=== PATIENT | female | born 1990 | race Caucasian/White ===

== ENCOUNTER → 2016-12-15 | Outpatient (CLI) | payer BC ==
--- NOTE | 2016-12-15 16:52 | REP ---
Obstetric sonography: History: Supervision of , size date discrepancy, size less than dates. Comparison study: 08/03/2016. Findings: Scanning through the gravid uterus demonstrates a viable single intrauterine gestation in a cephalic lie. motion is observed and heart rate is recorded at 150 beats per minute. Anterior right lateral placenta is seen grade 2 without evidence of previa or abruption. Amniotic fluid is subjectively normal. Closed cervical length is 1.8 cm, viewed transabdominally. There has been appropriate interval growth. Left-sided stomach, kidneys and bladder are seen today are unremarkable. Biometry chart: BPD 9.0 cm = 36 weeks 3 days Head circumference 33.4 cm = 38 weeks 1 day Abdominal circumference 31.6 cm = 35 weeks 4 days Femur length 7.4 cm = 37 weeks 5 days HC/AC ratio normal 1.06, cephalic index normal 0.75, estimated weight 2944 grams, 6 pounds 7 ounces 32nd percentile for 38 weeks 1 day. LEE normal 13.4 cm. SD ratio in the umbilical cord artery by Doppler normal at 2.29. Impression: Viable single intrauterine gestation at 36 weeks 6 days by today's composite criteria. Expected gestational age estimate based on prior sonography is 38 weeks 1 day. CHRIS by prior sonography 12/28/2016. There is appropriate interval growth.
== END ==
LOC: M WHC 13:27
PROVIDERS: ATTEND Nurse Practitioner Women's Health
DX: O26.849 Uterine size-date discrepancy, unspecified trimester (principal); Z3A.36 36 weeks gestation of pregnancy

== ENCOUNTER → 2016-12-29 | Outpatient (CLI) | payer BC ==
--- NOTE | 2016-12-29 14:15 | REP ---
Clinical: Decreased amniotic fluid volume . Comparison: 12/15/2016 . Findings: Examination demonstrates a single live advanced gestation in cephalic presentation. motion is identified by technologist. Placenta is noted anteriorly and grade 1 without evidence for placenta previa or abruption. Amniotic fluid volume is normal. Cervix measures 2.8 cm in length and appears closed. No evidence for nuchal cord. Gestational age by LMP 40 weeks 1 day with CHRIS 12/28/2016 . FHR equals 144 beats per minute. LEE equals 11.2 cm. Umbilical cord SD ratio equals 1.77. Impression: Single live advanced gestation in cephalic presentation. Amniotic fluid volume is within normal limits for age. Signed by Harshil Wyman MD 12/29/2016 02:06 P
== END ==
LOC: M RAD 13:43
PROVIDERS: ATTEND Nurse Practitioner Women's Health
DX: O41.03X1 Oligohydramnios, third trimester, fetus 1 (principal); Z3A.40 40 weeks gestation of pregnancy

== ENCOUNTER 2017-12-09 16:08 | Emergency (ER) | payer BC ==
[2017-12-09 17:59] LABS: BASO # 0.1 10^3/uL (0.0-0.2); BASO % 0.5 % (0.0-1.0); EOS % 0.4 % (0.0-3.0); HEMATOCRIT 32.9 % (36.0-47.0); HEMOGLOBIN 11.4 g/dl (12.0-16.0); IMMATURE GRANULOCYTE % 0.6 % (0-3.0); LYMPH # 1.3 10^3/uL (1.5-6.5); MEAN CORPUSCULAR HEMOGLOBIN 31.6 pg (27.0-33.0); MEAN CORPUSCULAR HGB CONC 34.7 g/dl (32.0-36.5); MEAN CORPUSCULAR VOLUME 91.1 fl (80.0-96.0); MONO # 0.7 10^3/uL (0.0-0.8); MONO % 6.1 % (0.0-5.0); NEUTROPHILS # 8.8 10^3/uL (1.8-7.7); NEUTROPHILS % 80.4 % (36.0-66.0); PLATELET COUNT, AUTOMATED 261 10^3/uL (150-450); RED BLOOD COUNT 3.61 10^6/uL (4.00-5.40); RED CELL DISTRIBUTION WIDTH 12.6 % (11.5-14.5); WHITE BLOOD COUNT 10.9 10^3/uL (4.0-10.0)
[2017-12-09] MEDS: NS 1,000 ML IV (18:10)
[2017-12-09 18:23] LABS: ACETAMINOPHEN LEVEL < 2.0 UG/ML (10.0-30.0); ALBUMIN 4.2 GM/DL (3.2-5.2); ALBUMIN/GLOBULIN RATIO 1.91 (1.00-1.93); ALKALINE PHOSPHATASE 100 U/L (45-117); ALT/SGPT 17 U/L (12-78); AMPHETAMINES LEVEL URINE NEGATIVE (NEGATIVE); ANION GAP 8 MEQ/L (8-16); AST/SGOT 9 U/L (7-37); BARBITURATES URINE NEGATIVE (NEGATIVE); BENZODIAZEPINES URINE NEGATIVE (NEGATIVE); BILIRUBIN,DIRECT < 0.1 MG/DL (0.0-0.2); BILIRUBIN,TOTAL 0.3 MG/DL (0.2-1.0); BLOOD UREA NITROGEN 7 MG/DL (7-18); CALCIUM LEVEL 8.1 MG/DL (8.5-10.1); CANNABINOIDS URINE POSITIVE (NEGATIVE); CARBON DIOXIDE LEVEL 24 MEQ/L (21-32); CHLORIDE LEVEL 110 MEQ/L (98-107); COCAINE METABOLITE URINE NEGATIVE (NEGATIVE); CREATININE FOR GFR 0.63 MG/DL (0.55-1.30); ETHYL ALCOHOL (ETHANOL) < 0.003 % (0.000-0.010); GLOMERULAR FILTRATION RATE > 60.0 (>60); GLUCOSE, FASTING 120 MG/DL (70-100); METHADONE URINE NEGATIVE (NEGATIVE); OPIATES URINE NEGATIVE (NEGATIVE); PHENCYCLIDINE URINE NEGATIVE (NEGATIVE); POTASSIUM SERUM 3.8 MEQ/L (3.5-5.1); SALICYLATE LEVEL < 1.7 MG/DL (5.0-30.0); SODIUM LEVEL 142 MEQ/L (136-145); TOTAL PROTEIN 6.4 GM/DL (6.4-8.2)
[2017-12-09 18:30] LABS: CONTROL LINE HCG INT CTR LINE PRESENT; HCG, SERUM QUALITATIVE NEGATIVE (NEGATIVE)
== END 2017-12-09 19:52 | disposition home or self-care (01) ==
LOC: M ED 16:08
DX: R56.9 Unspecified convulsions (principal); Z97.5 Presence of (intrauterine) contraceptive device
CPT/HCPCS: 70450

== ENCOUNTER 2018-01-05 15:38 | Emergency (ER) | payer BC ==
[2018-01-05] MEDS: levETIRAcetam INJection 1,000 MG in D5W 100 ML IV (17:02)
[2018-01-05] MEDS: ACETAMINOPHEN 325 MG TAB PO (17:02)
== END 2018-01-05 18:29 | disposition home or self-care (01) ==
LOC: M ED 15:38
DX: G40.909 Epilepsy, unspecified, not intractable, without status epilepticus (principal); Z97.5 Presence of (intrauterine) contraceptive device
CPT/HCPCS: J1953

== ENCOUNTER → 2020-08-06 | Outpatient (REF) | payer OTHER ==
[~2020-08-06] MED LIST: KEPP1TAB2 PO; PARA1IUD IU
== END ==
LOC: M WUC 15:56
PROVIDERS: ATTEND Nurse Practitioner Family
DX: R30.0 Dysuria (principal)

== ENCOUNTER → 2020-09-13 | Outpatient (REF) | payer OTHER | LOC: M SFHCWAGY 16:45 | PROVIDERS: ATTEND Advanced Practice Midwife | DX: N39.0 Urinary tract infection, site not specified (principal) ==

== ENCOUNTER → 2022-07-16 | Outpatient (REF) | payer OTHER | LOC: M SFHCWAGY 17:30 | PROVIDERS: ATTEND Nurse Practitioner Family | DX: Z12.4 Encounter for screening for malignant neoplasm of cervix (principal); R87.610 Atypical squamous cells of undetermined significance on cytologic smear of cervix (ASC-US) ==

== ENCOUNTER → 2022-07-24 | Outpatient (CLI) | payer OTHER | LOC: M WHC 11:51 | PROVIDERS: ATTEND Nurse Practitioner Family | DX: T83.32XS Displacement of intrauterine contraceptive device, sequela (principal); N85.4 Malposition of uterus; N85.2 Hypertrophy of uterus ==

== ENCOUNTER → 2022-08-27 | Outpatient (CLI) | payer OTHER ==
[~2022-08-27] MED LIST changes: +OXCA150T21 PO; +OXCA600T8 PO
== END ==
LOC: M LABSMTC 09:13
PROVIDERS: ATTEND Anesthesiology
DX: Z01.812 Encounter for preprocedural laboratory examination (principal); Z11.52 Encounter for screening for COVID-19

== ENCOUNTER 2022-08-31 10:04 | Day surgery (SDC) | payer OTHER ==
[~2022-08-31] VITALS: Ht 170.2 cm; Wt 65.2 kg
[2022-08-31] MEDS ORDERED: LR 1,000 ML IV SCH ×2 (10:45→12:40)
[2022-08-31] MEDS ORDERED: LIDOCAINE 2% 100MG/5ML SDV (FOR ANES.) As Ordered ONE (10:48)
[2022-08-31] MEDS ORDERED: propofoL 200 MG/20 ML VIAL As Ordered ONE (10:48)
[2022-08-31] MEDS ORDERED: ONDANSETRON 4MG 2ML VIAL As Ordered ONE (10:48)
[2022-08-31] MEDS ORDERED: dexameTHASONE 4 MG/ML 1ML VIAL (J1100 PER 1MG) As Ordered ONE (10:48)
[2022-08-31] MEDS ORDERED: KETOROLAC 60MG 2ML VIAL As Ordered ONE (10:48)
[2022-08-31] MEDS ORDERED: fentaNYL 100 MCG/2 ML INJECTION As Ordered ONE (10:49)
[2022-08-31] MEDS ORDERED: MIDAZOLAM INJ 2MG/2ML VIAL (J2250 PER 1MG) As Ordered ONE (10:49)
[2022-08-31] MEDS ORDERED: ONDANSETRON 4MG 2ML VIAL IV PRN (12:40)
[2022-08-31] MEDS ORDERED: fentaNYL 100 MCG/2 ML INJECTION IV PRN (12:40)
[2022-08-31] MEDS ORDERED: oxyCODONE 5MG TAB PO PRN (12:40)
[2022-08-31] MEDS ORDERED: HYDROMORPHONE HCL 0.5 MG/ 0.5 ML SYRINGE (J1170 PER 1) IV PRN (12:40)
[2022-08-31 14:03] VITALS: BP 123/77
[2022-08-31] MEDS ORDERED: KETOROLAC 30 MG/ML 1ML VIAL IV SCH (18:00)
== END 2022-08-31 14:39 | disposition home or self-care (01) ==
LOC: M SDC 10:04
PROVIDERS: ATTEND Obstetrics & Gynecology
DX: N84.0 Polyp of corpus uteri (principal); T83.39XA Other mechanical complication of intrauterine contraceptive device, initial encounter
CPT/HCPCS: 58558; 81025; 88305; J1100; J1885; J2250; J2405; J3010

== ENCOUNTER → 2024-01-21 | Outpatient (REF) | payer OTHER ==
[2024-01-21 15:37] LABS: APPEARANCE, URINE CLEAR (CLEAR); BACTERIA, URINE AUTO NEGATIVE (NEGATIVE); BILIRUBIN, URINE AUTO NEGATIVE (NEGATIVE); BLOOD, URINE BLOOD NEGATIVE (NEGATIVE); COLOR, URINE YELLOW (YELLOW); GLUCOSE, URINE (UA) AUTO NEGATIVE (NEGATIVE); KETONE, URINE AUTO NEGATIVE (NEGATIVE); LEUKOCYTE ESTERASE, URINE AUTO NEGATIVE (NEGATIVE); NITRITE, URINE AUTO NEGATIVE (NEGATIVE); PROTEIN, URINE AUTO NEGATIVE (NEGATIVE); RBC, URINE AUTO 0 /HPF (0-3); SPECIFIC GRAVITY URINE AUTO 1.015 (1.002-1.035); SQUAMOUS EPITHELIAL CELL UR AU 0 /HPF (0-6); UROBILINOGEN, URINE AUTO 0.2 mg/dL (0.0-2.0); WBC, URINE AUTO 0 /HPF (0-3)
== END ==
LOC: M SFHCWAGY 15:01
PROVIDERS: ATTEND Nurse Practitioner Family
DX: R39.15 Urgency of urination (principal); N39.0 Urinary tract infection, site not specified

== ENCOUNTER → 2024-02-10 | Outpatient (REF) | payer OTHER | LOC: M LAB REF 16:27 | PROVIDERS: ATTEND Physician Assistant Medical | DX: Z32.01 Encounter for pregnancy test, result positive (principal) ==

== ENCOUNTER → 2024-03-08 | Outpatient (CLI) | payer OTHER ==
[2024-03-08 14:10] LABS: HEMATOCRIT 43.3 % (36.0-47.0); HEMOGLOBIN 14.9 g/dl (12.0-15.5); MEAN CORPUSCULAR HEMOGLOBIN 31.6 pg (27.0-33.0); MEAN CORPUSCULAR HGB CONC 34.4 g/dl (32.0-36.5); MEAN CORPUSCULAR VOLUME 91.9 fl (80.0-96.0); PLATELET COUNT, AUTOMATED 251 10^3/uL (150-450); RED BLOOD COUNT 4.71 10^6/uL (4.00-5.40); WHITE BLOOD COUNT 7.8 10^3/uL (4.0-10.0)
[2024-03-08 15:13] LABS: HIV 1&2 SCREEN NEGATIVE (NEGATIVE)
[2024-03-08 15:21] LABS: HEPATITIS C VIRUS ABY INDEX < 0.02 INDEX (<0.8)
[2024-03-08 15:28] LABS: GC DNA AMPLIFICATION NEGATIVE (NEGATIVE)
== END ==
LOC: M PLALAB 11:24
PROVIDERS: ATTEND Advanced Practice Midwife
DX: O99.351 Diseases of the nervous system complicating pregnancy, first trimester (principal); G40.909 Epilepsy, unspecified, not intractable, without status epilepticus

== ENCOUNTER → 2024-03-10 | Outpatient (REF) | payer OTHER | LOC: M LAB REF 13:02 | PROVIDERS: ATTEND Physician Assistant Medical | DX: G40.009 Localization-related (focal) (partial) idiopathic epilepsy and epileptic syndromes with seizures of localized onset, not intractable, without status epilepticus (principal) ==

== ENCOUNTER → 2024-04-17 | Outpatient (CLI) | payer OTHER | LOC: M PLALAB 13:00 | PROVIDERS: ATTEND Advanced Practice Midwife | DX: O99.351 Diseases of the nervous system complicating pregnancy, first trimester (principal) ==

== ENCOUNTER 2024-05-11 11:15 | Emergency (ER) | payer OTHER ==
[~2024-05-11] VITALS: Ht 170.2 cm; Wt 67.7 kg
[2024-05-11 11:15] VITALS: BP 130/84; TEMP 97.9; O2SAT 97
[2024-05-11 12:18] LABS: IONIZED CALCIUM 4.3 MG/DL (4.5-5.3)
[2024-05-11 12:27] LABS: BASO % 0.4 % (0.0-1.0); EOS # 0.1 10^3/uL (0.0-0.5); EOS % 0.8 % (0.0-3.0); HEMATOCRIT 37.6 % (36.0-47.0); HEMOGLOBIN 13.2 g/dl (12.0-15.5); LYMPH # 0.6 10^3/uL (1.5-5.0); LYMPH % 7.4 % (24.0-44.0); MEAN CORPUSCULAR HEMOGLOBIN 32.4 pg (27.0-33.0); MEAN CORPUSCULAR HGB CONC 35.1 g/dl (32.0-36.5); MEAN CORPUSCULAR VOLUME 92.4 fl (80.0-96.0); MONO # 0.7 10^3/uL (0.0-0.8); MONO % 8.6 % (2.0-8.0); NEUTROPHILS % 82.3 % (36.0-66.0); PLATELET COUNT, AUTOMATED 197 10^3/uL (150-450); RED BLOOD COUNT 4.07 10^6/uL (4.00-5.40); WHITE BLOOD COUNT 8.5 10^3/uL (4.0-10.0)
[2024-05-11 12:51] LABS: ABG BASE EXCESS -3.4 (-2.0-2.0); ABG HCO3 19.8 MMOL/L (22.0-26.0); ABG O2 SATURATION 98.6 % (95.0-99.0); ABG PARTIAL PRESSURE CO2 30.5 mmHg (35.0-45.0); ABG PARTIAL PRESSURE O2 129.3 mmHg (75.0-100.0); ABG STANDARD HCO3 21.7 MMOL/L. (22.0-26.0); ABG TOTAL CO2 20.8 MMOL/L (22.0-29.0); ABG pH (ARTERIAL) 7.431 UNITS (7.350-7.450)
[2024-05-11 12:57] LABS: ALBUMIN 3.3 G/DL (3.2-5.2); ALKALINE PHOSPHATASE 60 U/L (46-116); ALT/SGPT 19 U/L (7.0-40); AST/SGOT 17 U/L (<34); BILIRUBIN,DIRECT < 0.1 MG/DL (<0.4); BILIRUBIN,TOTAL 0.4 MG/DL (0.3-1.2); BLOOD UREA NITROGEN 8 MG/DL (9-23); CARBON DIOXIDE LEVEL 20 MMOL/L (20-31); CHLORIDE LEVEL 108 MMOL/L (98-107); CREATININE FOR GFR 0.49 MG/DL (0.55-1.30); GLOMERULAR FILTRATION RATE > 60.0 (>60); GLUCOSE, FASTING 101 MG/DL (60-100); MAGNESIUM LEVEL 1.7 MG/DL (1.8-2.4); PHOSPHORUS LEVEL 2.3 MG/DL (2.5-4.9); POTASSIUM SERUM 4.3 MMOL/L (3.5-5.1); SODIUM LEVEL 135 MMOL/L (136-145)
[2024-05-11] MEDS: MAGNESIUM OXIDE 400MG TAB (MAG-OX) PO ONE (13:10)
[2024-05-11] MEDS: OXcarbazepine 150 MG TAB PO ONE (14:23)
[2024-05-11] MEDS: NEUTRA-PHOS 1.5 GM PACKET PO ONE (14:23)
[2024-05-11] MEDS: LORazepam 2 MG/ML 1ML VIAL IV STA (14:24)
[2024-05-11] MEDS ORDERED: ATIV1TAB7 PO (15:17)
== END 2024-05-11 15:49 | disposition home or self-care (01) ==
LOC: M ED 11:15
DX: R56.9 Unspecified convulsions (principal); Z79.899 Other long term (current) drug therapy
CPT/HCPCS: 36600; 80048; 80076; 80183; 82140; 82330; 82803; 83605; 83735; 84100; 85025; 93005; 93041; 94760; 96374; 99284; J2060

== ENCOUNTER → 2024-06-22 | Outpatient (CLI) | payer OTHER ==
[~2024-06-22] MED LIST changes: +ATIV1TAB7 PO
[2024-06-22 15:21] LABS: HEMATOCRIT 35.4 % (36.0-47.0); MEAN CORPUSCULAR HEMOGLOBIN 32.7 pg (27.0-33.0); MEAN CORPUSCULAR HGB CONC 33.9 g/dl (32.0-36.5); MEAN CORPUSCULAR VOLUME 96.5 fl (80.0-96.0); PLATELET COUNT, AUTOMATED 211 10^3/uL (150-450); RED BLOOD COUNT 3.67 10^6/uL (4.00-5.40); WHITE BLOOD COUNT 8.3 10^3/uL (4.0-10.0)
[2024-06-22 15:40] LABS: GLUCOSE CHALLENGE TEST 1 HOUR 70 MG/DL (LESS THAN 140)
[2024-06-22 16:15] LABS: HIV 1&2 SCREEN NEGATIVE (NEGATIVE)
[2024-06-22 16:23] LABS: HEPATITIS C VIRUS ABY INDEX < 0.02 INDEX (<0.8)
== END ==
LOC: M PLALAB 09:08
PROVIDERS: ATTEND Obstetrics & Gynecology
DX: O99.352 Diseases of the nervous system complicating pregnancy, second trimester (principal); Z3A.00 Weeks of gestation of pregnancy not specified

== ENCOUNTER → 2024-09-05 | Outpatient (REF) | payer OTHER | LOC: M SFHCWAGY 10:27 | PROVIDERS: ATTEND Advanced Practice Midwife | DX: Z34.83 Encounter for supervision of other normal pregnancy, third trimester (principal) ==

== ENCOUNTER 2024-09-29 00:24 | Inpatient (IN) | payer OTHER ==
[~2024-09-29] VITALS: Ht 170.2 cm; Wt 81.5 kg
[2024-09-29] VITALS (43 sets, daily range): BP systolic 98–169; BP diastolic 50–86
[2024-09-29] MEDS ORDERED: LIDOCAINE 1% MDV 20ML VIAL INFIL PRN (01:05)
[2024-09-29] MEDS ORDERED: CARBOPROST TROMETHAMINE 250 MCG/ML AMP IM PRN (01:05)
[2024-09-29] MEDS ORDERED: TRANEXAMIC ACID INJection 1,000 MG in NS 100 ML IV PRN (01:05)
[2024-09-29 01:35] LABS: HEMATOCRIT 33.1 % (36.0-47.0); HEMOGLOBIN 11.3 g/dl (12.0-15.5); MEAN CORPUSCULAR HEMOGLOBIN 30.1 pg (27.0-33.0); MEAN CORPUSCULAR HGB CONC 34.1 g/dl (32.0-36.5); MEAN CORPUSCULAR VOLUME 88.3 fl (80.0-96.0); PLATELET COUNT, AUTOMATED 197 10^3/uL (150-450); RED BLOOD COUNT 3.75 10^6/uL (4.00-5.40); WHITE BLOOD COUNT 10.6 10^3/uL (4.0-10.0)
[2024-09-29] MEDS ORDERED: FOLI400T5 PO (02:12)
[2024-09-29 02:22] LABS: EOSINOPHILS 1 % (0-3); LYMPHOCYTES 23 % (16-44); MONOCYTES 8 % (0-5); NEUTROPHILS 68 % (28-66)
[2024-09-29 02:24] LABS: PLATELET ESTIMATE INCREASED (NORMAL)
[2024-09-29] MEDS: OXYTOCIN DRIP 30 UNITS in IV 1 EA IV SCH (02:31)
[2024-09-29] MEDS: LR 1,000 ML IV SCH (02:31)
[2024-09-29 03:46] LABS: HEPATITIS C VIRUS ABY INDEX < 0.02 INDEX (<0.8)
[2024-09-29] MEDS ORDERED: FOLI1TAB11 PO (04:30)
[2024-09-29] MEDS: miSOPROStol 50MCG 1/2 TABLET PO SCH (08:01)
[2024-09-29] MEDS: OXcarbazepine 300 MG TAB PO SCH (08:47)
[2024-09-29] MEDS: OXcarbazepine 150 MG TAB PO SCH (08:47)
[2024-09-29] MEDS ORDERED: OXYTOCIN DRIP 30 UNITS in IV 1 EA IV SCH (16:10)
[2024-09-29] MEDS ORDERED: LR 1,000 ML IV SCH (16:10)
[2024-09-29] MEDS: LACTATED RINGER'S 1000 ML IV STA (21:08)
[2024-09-29] MEDS ORDERED: NALOXONE INJ 0.4MG/1ML VIAL IV PRN (21:45)
[2024-09-29] MEDS ORDERED: diphenhydrAMINE 50MG/ML VIAL IV PRN (21:45)
[2024-09-29] MEDS ORDERED: ONDANSETRON 4MG 2ML VIAL IV PRN (21:45)
[2024-09-29] MEDS ORDERED: LR 500 ML IV PRN (21:45)
[2024-09-29] MEDS ORDERED: ePHEDrine SULFATE 25 MG/5 ML(5MG/ML) SYRINGE IVP PRN (21:45)
[2024-09-29] MEDS ORDERED: EPIDURAL/PCA KEYS XX PRN (21:45)
[2024-09-29] MEDS: FENTANYL/ROPIVACAINE/NACL BAG 100 ML EPIDURAL SCH (22:08)
[2024-09-30] VITALS (20 sets, daily range): BP systolic 89–145; BP diastolic 52–77; O2SAT 99–100
[2024-09-30] MEDS: OXYTOCIN DRIP 30 UNITS in IV 1 EA IV PRN (02:37)
[2024-09-30] MEDS ORDERED: ACETAMINOPHEN 325 MG TAB PO PRN (03:05)
[2024-09-30] MEDS ORDERED: IBUPROFEN 600MG TAB PO PRN (03:05)
[2024-09-30] MEDS ORDERED: METHYLERGONOVINE MALEATE 0.2 MG TAB PO PRN (03:05)
[2024-09-30] MEDS ORDERED: RHOGAM 300MCG (1500IU) INJ IM SCH (03:05)
[2024-09-30] MEDS ORDERED: DIBUCAINE 1% OINTMENT 30GM TOP PRN (03:05)
[2024-09-30] MEDS ORDERED: ONDANSETRON 4MG 2ML VIAL IV PRN (03:05)
[2024-09-30] MEDS: METHYLERGONOVINE MALEATE 0.2MG/ML 1ML VIAL IM PRN (03:37)
[2024-09-30] MEDS: IBUPROFEN 800 MG TAB PO PRN (04:44)
[2024-09-30] MEDS: ACETAMINOPHEN 500 MG TAB PO PRN (07:52)
[2024-09-30] MEDS: DOCUSATE SODIUM 100MG CAPSULE PO PRN (07:53)
[2024-09-30] MEDS: PRENATAL VITAMINS CHEWABLE TABLET PO SCH (07:53)
[2024-10-01 05:46] VITALS: BP 120/73; O2SAT 100
[2024-10-02] MEDS ORDERED: MEASLES,MUMPS,RUBELLA VACCINE INJ (MMR-II) SC.IMMUN ONE (09:00)
== END 2024-10-01 14:20 | disposition home or self-care (01) | DRG 560 ==
LOC: M LDI 00:24 → M OBS 09-30 04:51
PROVIDERS: ADMIT Obstetrics & Gynecology; ATTEND Advanced Practice Midwife
PROC: 3E0P7GC Introduction of Other Therapeutic Substance into Female Reproductive, Via Natural or Artificial Opening (ICD-10-PCS; 2024-09-29)
PROC: 10E0XZZ Delivery of Products of Conception, External Approach (ICD-10-PCS; principal; 2024-09-30)
PROC: 0HQ9XZZ Repair Perineum Skin, External Approach (ICD-10-PCS; 2024-09-30)
DX: O70.0 First degree perineal laceration during delivery (principal); Z37.0 Single live birth; Z3A.39 39 weeks gestation of pregnancy

== ENCOUNTER → 2025-05-15 | Outpatient (REF) | payer OTHER, MEDICAID ==
[~2025-05-15] MED LIST changes: +FOLI1TAB11 PO; +FOLI400T5 PO
== END ==
LOC: M SFHCWAGY 09:48
PROVIDERS: ATTEND Advanced Practice Midwife
DX: R30.0 Dysuria (principal)